=== PATIENT | male | born 1990 | race Caucasian/White ===

== ENCOUNTER 2022-12-23 11:40 | Outpatient (CLI) | payer OTHER, SELFPAY | END 2022-12-23 11:41 | disposition home or self-care (01) | PROVIDERS: PCP Family Medicine; Visit Provider Family Medicine | DX: Z00.00 Encounter for general adult medical examination without abnormal findings (principal); R73.9 Hyperglycemia, unspecified; G62.9 Polyneuropathy, unspecified; F41.9 Anxiety disorder, unspecified; R19.7 Diarrhea, unspecified | CPT/HCPCS: 80053; 80061; 82607; 84443 ==